=== PATIENT | male | born 1970 | race Caucasian/White ===

== ENCOUNTER 2020-07-28 20:25 | Emergency (ER) | payer OTHER, SELFPAY ==
[2020-07-28 20:26] VITALS: BP 151/90; PULSE 90; RESP 18; TEMP 36.4; O2SAT 97; BMI 36.5
--- NOTE | 2020-07-28 22:07 | RAD_ITS ---
STUDY: X-RAY - LEFT HAND, ATTENTION 4th FINGER REASON FOR EXAM: Male, 49 years old. LACERATION TO PALM SURFACE OF DISTAL RING FINGER TECHNIQUE: 3 view(s) of the finger were obtained. COMPARISON: None. FINDINGS: Normal metacarpal head. Normal metacarpophalangeal joint. Normal proximal phalanx. Normal middle phalanx. Normal distal phalanx. Normal proximal interphalangeal joint. Normal distal interphalangeal joint. Soft tissue swelling of the tip of the finger. Laceration seen of the volar soft tissues. No fractures. No foreign bodies. RAD/Finger(s) Min 2 Views IMPRESSION: Laceration of the volar soft tissues of the tip of the fourth digit. Normal bones and joints. No foreign bodies. Electronically Signed: Anthony Hansen MD at 22:49 EST , Service support ,
[2020-07-28] MEDS: Lidocaine 1% (20 ml mdv) 20 ML Vial INFILT (23:48)
--- NOTE | 2020-07-28 23:49 | ED.VIS.UPPEX ---
History of Present Illness Chief Complaint: Laceration Informant: Patient Occurred: Today Mechanism/Context: Injury Context: Sudden Onset Timing: Continuous Quality of Pain: - - sore Location: left ring finger Current Severity: Mild Maximum Severity: Mild Worsened by: palpation Relieved by: partial digital block at urgent care Associated Symptoms: Parasthesia - since received digital block Narrative: Patient states he was detaching some farm equipment from his tractor, and it suddenly slipped without warning, causing a laceration to his left ring finger. This happened in the morning, and he went the majority of the day until getting it evaluated. He went to urgent care, they said he needed an x-ray that they could not perform, but they performed a partial digital block prior to sending him over here. [id number]. Tetanus Immunization: <5 years - today at urgent care Past Medical History - Allergies and Home Meds Allergies/Adverse Reactions: Allergies No Known Allergies Allergy (Verified 07/28/20 20:28) Primary Care Physician: Ben Cruz DO [Primary Care Provider] - Past Medical History: None Lives: Spouse/ Significant Other Smoking Status: Never smoker Review of Systems General: Denies: Chills, Fever, Sweats Musculoskeletal: Reports: Extremity Pain. Denies: Swelling Skin: Reports: Wounds. Denies: Rash Neurological: Reports: Parasthesia - only since digital block from urgent care Physical Exam Vital Signs/Narrative: Vital Signs Temp Pulse Resp BP Pulse Ox 07/28/20 20:26 97.6 F L 90 18 151/90 H 97 General: Well nourished, Well developed, - - NAD Head: Normocephalic, Atraumatic Extremeties: Laceration to the pad of the left ring finger in a U-shaped. The apex of the U is approximately at the crease of the DIPJ volar aspect. There is quite a bit of subcutaneous tissue involved and the wound itself is swollen throughout. The DIP J flexes without difficulty. The tendon is not visible even in bloodless field. No subungual hematoma or bony tenderness. Skin: Normal color, No rash, Trauma - 4 cm U-shaped clean appearing laceration left ring finger volar aspect of the pad. There are 2 small puncture wounds with clotted blood at the volar aspect of the proximal phalanx of the same finger, none dorsally. Patient does not have tenderness in flexor tendon sheath distribution. Neurological: Alert, Oriented x3, Cranial nerves II-XII grossly intact, Normal Strength, Normal Gait Psychological: Normal affect, Normal Mood Diagnostic/Tx/Re-eval Clinical Impression(s) from Imaging Studies Finger X-Ray 07/28/20 22:07 IMPRESSION: Laceration of the volar soft tissues of the tip of the fourth digit. Normal bones and joints. No foreign bodies. Electronically Signed: Anthony Hansen MD at 22:49 EST , Service support , - Medical Decision Making Patient presents during very busy emergency department, it took him a while to get back to a room from the waiting room. His digital block had almost completely worn off, and was only partial anyway. I had to repeat it, we did so from a dorsal aspect and he had complete anesthesia of the finger, x-rays were negative, wound was repaired, and since he had a delayed presentation I placed him on prophylactic antibiotics. Suture removal in 10 to 14 days. Procedures - Lacerations L ring finger Length: 4 cm Depth: Sub Q Shape: U-shaped Prep: Sterile Conditions, Chlorhexadine Laceration repair: Digital block - dorsal approach to all 4 nerves, good anesthesia obtained., Irrigated, Lidocaine - 7cc total Irrigated (ml): 60 Number of Sutures/Yisel: 8 Suture Information: Ethilon, Simple, 4-0 ED Disposition - Plan for ED Patient: Disposition: Home or Assisted Living Diagnosis: Laceration of left ring finger Instructions: ED Laceration Hand Prescriptions: Cephalexin [Keflex] 500 mg PO TID 5 Days #15 cap Prescription Printed Referrals: Ben Cruz DO [Primary Care Provider] - 10-14 Days suture removal
[2020-07-29 00:01] VITALS: PULSE 76; RESP 16; O2SAT 98
== END 2020-07-29 00:03 | disposition home or self-care (01) ==
PROVIDERS: Emergency Provider Emergency Medicine; PCP Student in an Organized Health Care Education/Training Program
DX: S61.215A Laceration without foreign body of left ring finger without damage to nail, initial encounter (principal); W31.89XA Contact with other specified machinery, initial encounter; Y93.89 Activity, other specified; Y92.9 Unspecified place or not applicable; Y99.9 Unspecified external cause status
CPT/HCPCS: 12002; 73140; 99283

== ENCOUNTER 2021-05-23 19:38 | Emergency (ER) | payer OTHER, SELFPAY ==
[2021-05-23 19:39] VITALS: BP 146/71; PULSE 85; RESP 18; TEMP 37.1; O2SAT 94; BMI 35.7
--- NOTE | 2021-05-23 21:13 | EX.ED.VIS.UR ---
HPI HPI - URI History of Present Illness Chief Complaint: Headache Detail of Chief Complaint: URI symptoms. Informant: patient and spouse/S.O. Onset/Context/Timing Onset: Days Context: Gradual Onset Timing: Continuous Current Severity: Mild Maximum Severity: Mild Associated Symptoms Associated Symptoms: Positive for Nasal Congestion, Headache, Myalgias, Nausea and Nonproductive cough; Negative for Vomiting, Diarrhea and Hemoptysis Narrative Narrative: 50-year-old male history of hypertension and prior kidney stones. States he has really felt well for a week. He is a nonproductive cough. [place] fatigued. Headache. Nausea no vomiting. No diarrhea. No documented fever. No dysuria. He has not been vaccinated for Covid. Prior similar symptoms: No Recent Illness/Hospitalization: No ROS ROS ED ROS Narrative Nonproductive cough. Headache. Nausea. Review of Systems ROS Unobtainable: Denies due to encephalopathy Constitutional Constitutional ED: Denies chills or fever(s) Eyes Eyes: Denies change in vision ENT ENT ED: Denies ear pain or sore throat Cardiovascular Cardiovascular: Denies chest pain Respiratory/Chest Respiratory/Chest: Reports cough; Denies dyspnea or sputum Gastrointestinal Gastrointestinal: Reports nausea; Denies abdominal pain, diarrhea or vomiting Genitourinary Genitourinary ED: Denies dysuria Musculoskeletal Musculoskeletal: Reports myalgias Integumentary Denies abscess or rash Neurologic Neurologic: Reports headache(s) Psychiatric Psychiatric: Denies depression Endocrine Endocrinology: Denies polyuria Hematologic/Lymphatic Hematologic/Lymphatic: Denies easy bruising Allergic/Immunologic Allergic/Immunologic ED: Denies urticaria [facility] Medical History Hypertension Home Medications dexamethasone [Decadron] 6 mg PO DAILY 7 Days #7 tab 05/23/21 [Rx Last Taken Unknown] losartan 25 mg PO DAILY 05/23/21 [History Last Taken Unknown] Allergy/AdvReac Type Severity Reaction Status Date / Time No Known Allergies Allergy Verified 05/23/21 19:39 Social History Smoking Status: Never smoker EXAM Physical Exam Narrative Exam Narrative: Middle-age male no acute distress vital signs stable afebrile. O2 sat 94% no hypoxia. HEENT exam unremarkable. Neck nontender no meningismus. No lymphadenopathy. Lungs dry cough. Few scattered expiratory wheezes. No rales or rhonchi. Equal symmetrical. Heart regular rate and rhythm rate about 85 no murmur. Chest were nontender. Abdomen soft nontender. Moving all 4 extremities. Nontender no edema. Equal symmetrical chemistry technologist strength. Dorsi plantarflexion intact. Neurologic exam normal. No focal motor deficits. Back nontender. Const Vital Signs: 05/23/21 19:39 Temperature 98.7 F Temperature Source Temporal Pulse Rate 85 Respiratory Rate 18 Blood Pressure 146/71 H Blood Pressure Mean 96 Pulse Ox 94 Oxygen Delivery Method Room Air Positive well nourished and well developed; Negative for obese, cachectic or contractures General Appearance ED: well developed and NAD; Negative for cachectic, contractures, cyanotic, diaphoretic or pallor Nutritional Appearance: Negative for cachectic or obese HEENT Reports moist mucous membranes; Denies dry mucous membranes normocephalic and atraumatic; Negative for scalp tenderness Face and Sinus: Negative for sinus tenderness or facial tenderness Mouth ED: No dry mucous membranes Mouth: No dry mucous membranes Throat: Negative for posterior oropharynx normal Eyes PERRL and EOMs intact bilaterally Neck no lymphadenopathy, supple, no meningeal signs and no JVD General: Negative for anterior neck swelling or lymphadenopathy Resp normal respiratory effort and No clear to auscultation bilaterally Effort and Inspection: Negative for retractions or pain with movement Auscultation: wheezes; Negative for rales, rhonchi or diminished lung sounds Cardio S1 normal heart sound, S2 normal heart sound and no murmurs Rate: regular rate Rhythm: regular rhythm GI non-tender, non-distended and no masses Inspection: Negative for abdominal distention Auscultation: normoactive bowel sounds Palpation: soft; Negative for tender or guarding Back/Spine no CVA tenderness and normal ROM General Back: Negative for CVA tenderness Cervical Spine: Negative for cervical spine tenderness Thoracic Spine / Upper Back: Negative for thoracic spinal tenderness Extremity normal to inspection and full ROM General Extremety ED: Negative for cyanosis or tenderness General Extremity: Negative for cyanosis Neuro oriented x3 and CN's II-XII intact bilaterally Sensorium / Orientation: alert, oriented to person, oriented to place and oriented to time; Negative for orientation impaired, lethargic or stuporous Motor Exam: strength 5/5 throughout Psych mental status grossly normal Mood & Affect: Negative for depressed or tearful Skin General Skin Exam: Negative for jaundice or pallor Lesions: no lesions Rashes: no rashes MDM MDM MDM Narrative Medical decision making narrative: Middle-age male respiratory symptoms. Covid test and chest x-ray being obtained. Will be given p.o. Decadron. Repeat exam no change. Patient be placed on Covid quarantine. And Decadron for the next week. Lab Data Attestation: I reviewed the patient's lab results. Lab results narrative: Covid test positive. Chest x-ray unremarkable. Radiography Diagnostic Testing: Portable chest x-ray single view interpreted by myself shows no acute abnormality. Normal cardiac silhouette. No infiltrates. Normal lung mcneill. Normal mediastinum Discharge Plan Triage Chief Complaint: Headache ED Provider: Domenico Valdez Dx/Rx/DC Orders Clinical Impression: COVID-19 Instructions: Human Coronaviruses Prescriptions: New dexamethasone [Decadron] 6 mg tablet 6 mg PO DAILY 7 Days Qty: 7 RF: 0 No Action losartan 25 mg tablet 25 mg PO DAILY RF: 0 Primary Care Provider: Ben Cruz Referrals: Ben Cruz, [Primary Care Provider] - 10-14 Days if not better Disposition Disposition: Home, Self Care
--- NOTE | 2021-05-23 21:25 | RAD_ITS ---
STUDY: X-RAY CHEST REASON FOR EXAM: Male, 50 years old. cough TECHNIQUE: AP portable COMPARISON: 09/07/2012. FINDINGS: The lungs are clear and expanded. Tiny calcified granuloma in right lower lobe. There is no demonstrated pleural abnormality. Normal size heart. Normal mediastinum and rip. Normal visualized pulmonary arteries. Normal visualized aortic arch and descending thoracic aorta. Normal visualized thoracic spine. Normal visualized ribs, clavicles, and shoulders. There is no demonstrated abnormality of the visualized soft tissue structures of the upper abdomen. No significant change since prior exam RAD/Chest 1 View (Portable) IMPRESSION: Old granulomatous disease in the right lower lobe. No acute cardiopulmonary pathology. Electronically Signed: Duran Driscoll MD at 22:26 EDT , Service support ,
[2021-05-23] MEDS: dexAMETHasone 4 MG Tablet 6 MG PO (21:39)
== END 2021-05-23 22:16 | disposition home or self-care (01) ==
PROVIDERS: Emergency Provider Emergency Medicine; PCP Student in an Organized Health Care Education/Training Program
DX: U07.1 COVID-19 (principal); I10 Essential (primary) hypertension; Z79.899 Other long term (current) drug therapy
CPT/HCPCS: 71045; 87426; 99283

== ENCOUNTER 2021-11-03 12:11 | Emergency (ER) | payer OTHER, SELFPAY ==
[2021-11-03 12:12] VITALS: BP 140/88; PULSE 65; RESP 16; TEMP 36.1; O2SAT 95; BMI 34.8
--- NOTE | 2021-11-03 12:41 | EDS_ITS ---
HPI History of Present Illness Chief Complaint: Head Injury Informant: patient Onset/Context/Timing Onset: Today and Hours Current Severity: Mild Maximum Severity: Mild Associated Symptoms Associated Symptoms: Positive for Loss of consciousness; Negative for Parasthesias, Weakness, Loss of function, Inability to ambulate and Amnesia Narrative Narrative: 51-year-old male past medical history diabetes hypertension. 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 He did have a loss of conscious. He denies any arm or leg pain. He said only neck pain he has is laterally on the left. He denies any numbness or weakness. States he has a mild headache. And he does not feel 100%. Has had no nausea or vomiting. He is on no blood thinners. He denies other injuries. Prior similar symptoms: No Recent Illness/Hospitalization: No PFSH PFSH Medical History Hypertension Home Medications dexamethasone [Decadron] 6 mg PO DAILY 7 Days #7 tab 05/23/21 [Rx Last Taken Unknown] losartan 25 mg PO DAILY 05/23/21 [History Last Taken Unknown] metformin 500 mg PO DAILY 11/03/21 [History Last Taken Unknown] Allergy/AdvReac Type Severity Reaction Status Date / Time No Known Allergies Allergy Verified 11/03/21 12:13 Social History Smoking Status: Never smoker ROS ROS ED ROS Narrative Denies. Review of Systems ROS Unobtainable: Denies due to encephalopathy Constitutional Constitutional ED: Denies fever(s) Eyes Eyes: Denies change in vision ENT ENT ED: Denies ear pain Cardiovascular Cardiovascular: Denies chest pain Respiratory/Chest Respiratory/Chest: Denies dyspnea Gastrointestinal Gastrointestinal: Denies abdominal pain, diarrhea, nausea or vomiting Genitourinary Genitourinary ED: Denies dysuria Musculoskeletal Musculoskeletal: Denies myalgias Integumentary Denies rash Neurologic Neurologic: Reports headache(s) Psychiatric Psychiatric: Denies depression Endocrine Endocrinology: Denies polyuria Hematologic/Lymphatic Hematologic/Lymphatic: Denies easy bruising Allergic/Immunologic Allergic/Immunologic ED: Denies urticaria EXAM Physical Exam Narrative Exam Narrative: 51-year-old male no acute distress vital signs stable afebrile. H EENT exam pupils round reactive light. No facial trauma. Small contusion left posterior scalp. No laceration. C-spine nontender. Trachea midline. Normal range of motion. Left lateral paracervical soft tissue tenderness. Lungs are clear. Heart regular rate and rhythm. Chest wall nontender. Abdomen soft nontender. Pelvic girdle intact. Moving all 4 extremities. Normal unarmed security officer strength. Normal dorsi plantar flexion. Back and spine are nontender. Neurologically he did have a brief loss of conscious. Is awake alert. He knows the month, year and president night states. He has normal motor strength and sensation to his upper extremities. His GCS is 15. Const Vital Signs: 11/03/21 12:12 11/03/21 13:00 Temperature 96.9 F L Temperature Source Temporal Pulse Rate 65 Respiratory Rate 16 Respiratory Effort Normal Respiratory Depth Normal Respiratory Pattern Normal Blood Pressure 140/88 H Blood Pressure Mean 105 Pulse Ox 95 Oxygen Delivery Method Room Air Positive well nourished and well developed; Negative for obese, cachectic, contractures or unkempt General Appearance ED: well developed and NAD; Negative for unkempt, cachectic or contractures Nutritional Appearance: Negative for cachectic or obese HEENT trauma and tenderness; Negative for atraumatic Eyes PERRL and EOMs intact bilaterally Neck full ROM Neck Narrative: Left lateral soft tissue tenderness. No spine tenderness. Normal range of motion. General: tenderness Chest Wall inspection of chest normal and palpation of chest normal Resp normal respiratory effort and clear to auscultation bilaterally Auscultation: Negative for rales, rhonchi or wheezes Cardio regular rhythm, S1 normal heart sound, S2 normal heart sound and no murmurs Rate: regular rate GI normal to inspection, nondistended, normoactive bowel sounds, non-tender, non- distended and no masses Auscultation: normoactive bowel sounds Palpation: soft; Negative for tender, guarding or rebound tenderness present Back/Spine normal to inspection and no thoracic nor lumbar tenderness General Back: Negative for CVA tenderness Thoracic Spine / Upper Back: Negative for thoracic spinal tenderness Lumbar Spine / Lower Back: Negative for straight leg raise negative bilaterally Extremity normal to inspection and full ROM General Extremety ED: Negative for deformity, edema or tenderness General Extremity: Negative for deformity or edema Neuro oriented x3 and moves all extremities Cira Coma Scale: document GCS findings Spontaneous Obeys Commands Oriented 15 Sensorium / Orientation: alert, oriented to person, oriented to place and oriented to time; Negative for lethargic or stuporous Motor Exam: strength 5/5 throughout Psych mental status grossly normal and thought process normal Appearance: Negative for unkempt Skin no rashes or lesions noted, no wounds and no jaundice MDM MDM MDM Narrative Medical decision making narrative: Patient with fall and head trauma with loss of consciousness. Exam benign. CT of his brain to be obtained. I suspect clinically he has a concussion. He did not want anything for pain. Repeat exam patient is doing well at 2:30 PM. Neurologic exam remains normal. We went over his CAT scan results. Discharge instructions. Radiography Diagnostic Testing: Clinical Impression(s) from Imaging Studies Brain CT 11/03/21 12:41 IMPRESSION: There are no acute intracranial findings. There is no underlying fracture. Soft tissue swelling of the scalp- posteriorly to the left. Electronically Signed: Michael Cardona MD at 13:23 EST Reading Location ID and State: [facility] / [place] , Service support , CAT scan is read by the radiologist shows no acute abnormality other than soft tissue swelling from where it is head. No intracranial bleed. I did review the film. Discharge Plan Triage Chief Complaint: Head Injury ED Provider: Domenico Valdez Dx/Rx/DC Orders Clinical Impression: Fall, Closed head injury Instructions: ED Concussion Prescriptions: No Action losartan 25 mg tablet 25 mg PO DAILY RF: 0 dexamethasone [Decadron] 6 mg tablet 6 mg PO DAILY 7 Days Qty: 7 RF: 0 metformin 500 mg tablet extended release 24 hr 500 mg PO DAILY RF: 0 Primary Care Provider: Ben Cruz Referrals: Ben Cruz, [Primary Care Provider] - 1 Week if not improving Activity Restrictions/Additional Instructions: Ice all sore areas. Motrin and Tylenol for pain. Follow-up with your primary care physician if not progressively improving. Disposition Disposition: Home, Self Care
--- NOTE | 2021-11-03 12:41 | CT_ITS ---
STUDY: CT BRAIN WITHOUT CONTRAST REASON FOR EXAM: Male, 51 years old. FELL, HIT HEAD, ? LOC, BUMP ON LT PARIETAL head trauma REIS TECHNIQUE: Transaxial CT imaging of the brain was performed without administration of intravenous contrast material. Individualized dose optimization techniques were used for this CT. COMPARISON: None FINDINGS: Normal calvarium. There is no underlying fracture. Soft tissue swelling of the scalp- posteriorly to the left. Normal size ventricles and extra-axial spaces for the patient''s age. Normal white matter tracts of the cerebral hemispheres. Normal basal ganglia and thalami. Normal brainstem. Normal cerebellum. There is no intracranial hemorrhage. There are no findings of an acute ischemic infarction. There is sinus disease. ASPECTS 10 CT/Brain/Head without Contrast IMPRESSION: There are no acute intracranial findings. There is no underlying fracture. Soft tissue swelling of the scalp- posteriorly to the left. Electronically Signed: Michael Cardona MD at 13:23 EST ,
[2021-11-03 14:36] VITALS: PULSE 60; RESP 12
== END 2021-11-03 14:36 | disposition home or self-care (01) ==
PROVIDERS: Emergency Provider Emergency Medicine; PCP Student in an Organized Health Care Education/Training Program; Visit Provider Emergency Medicine
DX: S06.0X9A Concussion with loss of consciousness of unspecified duration, initial encounter (principal); E11.9 Type 2 diabetes mellitus without complications; W01.198A Fall on same level from slipping, tripping and stumbling with subsequent striking against other object, initial encounter; Y92.79 Other farm location as the place of occurrence of the external cause; I10 Essential (primary) hypertension; Z79.84 Long term (current) use of oral hypoglycemic drugs; Z79.899 Other long term (current) drug therapy
CPT/HCPCS: 70450; 99282

== ENCOUNTER 2024-10-12 18:13 | Inpatient (IN) | payer OTHER, SELFPAY ==
[2024-10-12] VITALS (8 sets, daily range): BP systolic 103–157; BP diastolic 67–89; PULSE 76–90; RESP 15–20; TEMP 37.7–38.3; O2SAT 88–95; BMI 34.2; BMI 32.8
--- NOTE | 2024-10-12 18:45 | EKG12_ITS ---
Test Reason : DYSRHYTHMIA Blood Pressure : */* mmHG Vent. Rate : 78 BPM Atrial Rate : 78 BPM P-R Int : 174 ms QRS Dur : 80 ms QT Int : 342 ms P-R-T Axes : 43 31 39 degrees QTcB Int : 389 ms Normal sinus rhythm Normal ECG Confirmed by RHONDA AGOSTO, LEVAR ([id number]), movie editor JONATHAN MCCLOUD ([id number]) on 10/14/2024 7:09:37 AM Referred By: Confirmed By: LEVAR ELLIS MD
--- NOTE | 2024-10-12 18:45 | RAD_ITS ---
PROCEDURE: CHEST PA AND LATERAL REASON FOR EXAM: Headache chills and shortness of breath. TECHNIQUE: Frontal and lateral views of the chest. COMPARISON: None. FINDINGS: The heart size is normal. The mediastinal contour is unremarkable. Mild left basilar atelectasis versus infiltrate. The bones are unremarkable. RAD/Chest PA and Lateral IMPRESSION: Mild left basilar atelectasis versus infiltrate. Reading Location: [id number]
[2024-10-12] MEDS: Albuterol 2.5 MG/3 ML VIAL.NEB. INHALATION ×3 (19:27→20:03)
[2024-10-12 19:32] LABS: Bedside Glucose 109 mg/dL (74-106)
[2024-10-12 19:49] LABS: ALB/GLOB Ratio 1.1 RATIO (0.9-2.4); AST(SGOT) 30 U/L (15-37); Alanine Aminotransfer ALT/SGPT 39 U/L (16-61); Albumin, Serum 3.6 g/dL (3.2-5.0); Alkaline Phosphatase 100 U/L (45-117); Anion Gap 9 (5-15); BUN 12 mg/dL (7-18); BUN/Creat Ratio 11.2 RATIO (10-20); Calcium,Total 8.6 mg/dL (8.5-10.1); Chloride 105 mmol/L (98-107); Creatinine, Serum 1.07 mg/dL (0.70-1.30); EST Glomerular Filtration Rate 76 mL/min (>60); Est Glom Filt Rate - Afr Amer 92 mL/min (>60); Estimated Creatinine Clearance 97.73 ml/min; Globulin 3.2 g/dL (2.2-4.2); Glucose 109 mg/dL (74-106); Potassium 4.5 mmol/L (3.5-5.1); Protein, Total 6.8 g/dL (6.4-8.2); Sodium Level 138 mmol/L (136-145)
[2024-10-12 20:04] LABS: Absolute Lymphocyte Count 1.27 X10^3/uL (0.83-4.51); Absolute Neutrophil Count 3.8 X10^3/uL (2.0-7.7); Basophil# 0.03 X10^3/uL; Basophil% 0.5 % (0-1); Eosinophil# 0.02 X10^3/uL; Eosinophils% 0.3 % (0-5); Hematocrit 47.1 % (40-54); Hemoglobin 16.2 g/dL (13.0-16.5); Lymphocyte # 1.27 X10^3/ul (0.83-4.51); Lymphocyte % 20.6 % (19-41); Mean Corp Hgb Conc 34.4 g/dL (32-36); Mean Corpuscular Hgb 31.4 pg (27.0-32.0); Mean Corpuscular Volume 91.3 fL (80-94); Mean Platelet Vol. 10.4 fl (6.2-12.0); Monocyte# 1.05 X10^3/uL; NRBC Flagged by Analyzer 0 % (0-5); Neutrophil # 3.78 X10^3/uL (2.7-7.7); Neutrophil % 61.3 % (47-70); Platelet Count 143 K/mm3 (150-450); RBC Distribution Width CV 12.9 % (11.6-14.6); RBC Distribution Width SD 43.7 fl (35.1-43.9); Red Blood Count 5.16 M/mm3 (4.6-6.2); White Blood Count 6.2 K/mm3 (4.4-11.0)
[2024-10-12 20:05] LABS: Lactic Acid 1.2 mmol/L (0.4-1.9)
[2024-10-12] MEDS: Acetaminophen 325 MG Tablet 650 MG PO (20:16)
--- NOTE | 2024-10-12 20:19 | CPS ---
[1927] x3 Albuterol given to pt. in ER
--- NOTE | 2024-10-12 20:35 | EDS_ITS ---
HPI History of Present Illness Chief Complaint: General Illness Detail of Chief Complaint: Generalized weakness with minimal cough, fever, chills and aches Informant: patient and spouse/S.O. Onset/Context/Timing Onset: Days (2 days ago) Context: Sudden Onset Timing: Continuous and Waxes and wanes Quality: Headache, myalgias, arthralgias, fever, shaking chills mild cough Location: Upper respiratory Current Severity: Mild Maximum Severity: Moderate Worsened by: Nothing specific Relieved by: Nothing Associated Symptoms Associated Symptoms: Flulike symptoms Narrative Narrative: Patient is a 54-year-old male. He has history of hypertension and type 2 diabetes. He has been monitoring his blood sugar. His last A1c was 8.4. Patient complains of headache, congestion, mild sore throat he has nonproductive scant cough. He does complain of aches. He states he does not feel well. He does complain of shortness of breath and dyspnea on exertion. He is a non- smoker. He has been in contact with people who are ill. Prior similar symptoms: No Recent Illness/Hospitalization: No [facility] Medical History Hypertension Home Medications ?Medication ?Instructions ?Recorded ?Last Taken ?Type dexamethasone 6 mg tablet 6 mg PO DAILY 7 days #7 tabs 05/23/21 Unknown Rx (Decadron) losartan 25 mg tablet 25 mg PO DAILY 05/23/21 Unkn own History metformin 500 mg tablet,extended 500 mg PO DAILY 11/03 Unknown History release 24 hr Allergy/AdvReac Type Severity Reaction Status Date / Time No Known Allergies Allergy Verified 10/12/24 18:14 Social History (Updated 10/12/24 @ 20:[address] Enmanuel Crawford MD) household members: spouse Smoking Status: Never smoker ROS ROS ED Constitutional Constitutional ED: Reports chills, fever(s) and sweats Eyes Eyes: Denies blurry vision or change in vision ENT ENT ED: Reports rhinorrhea and sore throat; Denies ear pain Cardiovascular Cardiovascular: Denies chest pain, orthopnea, palpitations or paroxysmal nocturnal dyspnea Respiratory/Chest Respiratory/Chest: Reports cough, dyspnea and dyspnea on exertion; Denies orthopnea, paroxysmal nocturnal dyspnea or sputum Gastrointestinal Gastrointestinal: Reports nausea; Denies abdominal pain, diarrhea or vomiting Genitourinary Genitourinary ED: Reports other Details: Patient does endorse decreased urine output, thirst. ; Denies dysuria, hematuria or urinary frequency Musculoskeletal Musculoskeletal: Reports arthralgias and myalgias; Denies neck pain Integumentary Denies rash Neurologic Neurologic: Reports headache(s) and weakness Psychiatric Psychiatric: Denies anxiety or depression Hematologic/Lymphatic Hematologic/Lymphatic: Reports systems reviewed and no addt'l complaints, except as documented EXAM Physical Exam Const Vital Signs: 10/12/24 18:14 10/12/24 19:26 10/12/24 19:26 Temperature 100.3 F H 100.9 F H Temperature Source Oral Oral Pulse Rate 78 76 Respiratory Rate 18 15 Respiratory Effort Short of Breath Respiratory Pattern Normal Blood Pressure 110/89 H 118/78 Blood Pressure Mean 96 91 Pulse Ox 94 91 Oxygen Delivery Method Room Air Room Air Oxygen Flow Rate (L/min) 10/12/24 19:27 10/12/24 20:00 10/12/24 20:13 Temperature 100.9 F H Temperature Source Oral Pulse Rate 88 87 Respiratory Rate 18 18 Respiratory Effort Respiratory Pattern Normal Blood Pressure 110/67 Blood Pressure Mean 81 Pulse Ox 88 93 Oxygen Delivery Method Room Air Nasal Cannula Oxygen Flow Rate (L/min) 2 Positive well nourished and well developed Constitutional Narrative: BMI is 34.2. General Appearance ED: well developed; Negative for cyanotic, diaphoretic or NAD HEENT Reports moist mucous membranes HEENT Narrative: Head is atraumatic normocephalic. Ears normal. Eyes PERRL and EOMs intact bilaterally General Eye ED: Negative for pale conjunctiva or scleral icterus Neck no lymphadenopathy, supple and no JVD Neck Narrative: Trachea is midline. There is no stridor. Resp normal respiratory effort and No clear to auscultation bilaterally Auscultation: rhonchi throughout and wheezes expiratory wheezes (Greater lower lobes compared to upper.) Cardio regular rate, regular rhythm, S1 normal heart sound, S2 normal heart sound and no murmurs GI normal to inspection, nondistended, normoactive bowel sounds, non-tender, non- distended and no masses; Negative for hepatosplenomegaly Back/Spine no CVA tenderness Extremity normal to inspection General Extremety ED: Negative for edema or tenderness General Extremity: Negative for edema Neuro oriented x3 and CN's II-XII intact bilaterally Sensorium / Orientation: alert Psych mental status grossly normal Skin Skin Narrative: Patient appears flushed and ill. MDM MDM MDM Narrative Medical decision making narrative: Patient with flulike symptoms. Sepsis workup was undertaken.Patient was ordered Tylenol for his fever. Since he is influenza A positive and hypoxic Tamiflu was ordered. Will obtain chest x-ray to assess for pneumonia. Rapid antigen for COVID flu and RSV, comprehensive metabolic panel CBC and lactate to assess for endorgan dysfunction. EKG since he is diabetic and tachycardic to rule out ischemia since he has an infectious etiology for his symptoms. He did receive aerosol treatments for rhonchi and wheezing noted on auscultation. History & Record Review Additional record(s) reviewed:: Prior ED visit (Seen November 03, 2021 for closed head injury, May 2021 for COVID, July 2020 for left ring finger laceration) and Prior labs Lab Data Attestation: I reviewed the patient's lab results. Lab results narrative: Comprehensive metabolic panel is remarkable slight elevated glucose of 109 with normal CO2 anion gap. White count is unremarkable. Labs: Laboratory Results - last 24 hr 10/12/24 10/12/24 10/12/24 19:05 19:05 19:12 WBC Cancelled Corrected WBC Cancelled RBC Cancelled Hgb Cancelled Hct Cancelled MCV Cancelled MCH Cancelled MCHC Cancelled RDW Std Deviation Cancelled RDW Coeff of Heidi Cancelled Plt Count Cancelled MPV Cancelled Immature Gran % (Auto) Cancelled Neut % (Auto) Cancelled Lymph % (Auto) Cancelled [place] % (Auto) Cancelled Eos % (Auto) Cancelled Baso % (Auto) Cancelled Absolute Neuts (auto) Cancelled Absolute Lymphs (auto) Cancelled Total Counted Cancelled Neutrophils % (Manual) Cancelled Band Neutrophils % Cancelled Lymphocytes % (Manual) Cancelled Monocytes % (Manual) Cancelled Eosinophils % (Manual) Cancelled Basophils % (Manual) Cancelled Metamyelocytes % Cancelled Myelocytes % Cancelled Promyelocytes % Cancelled Blast Cells % Cancelled Plasma Cell % (Manual) Cancelled Other Cells % Cancelled Nucleated RBC % Cancelled Nucleated RBCs/100 WBC Cancelled Differential Comment Cancelled Diff Path Review Cancelled Hypersegmented Neuts Cancelled Atypical Lymphocytes Cancelled Reactive Lymphocytes Cancelled Smudge Cells Cancelled Toxic Granulation Cancelled Toxic Vacuolation Cancelled Dohle Bodies Cancelled Eduar Rods Cancelled Platelet Estimate Cancelled Plt Morphology Comment Cancelled RBC Morphology Cancelled Cancelled Polychromasia Cancelled Hypochromasia Cancelled Basophilic Stippling Cancelled Anisocytosis Cancelled Microcytosis Cancelled Macrocytosis Cancelled Spherocytes Cancelled Sickle Cells Cancelled Target Cells Cancelled Tear Drop Cells Cancelled Ovalocytes Cancelled Stomatocytes Cancelled [place] Bodies Cancelled [place] Cells Cancelled Bite Cells Cancelled Crenated Cell Cancelled Acanthocytes (Spur) Cancelled Rouleaux Cancelled Schistocytes Cancelled Sodium 138 Potassium 4.5 Chloride 105 Carbon Dioxide 25.0 Anion Gap 9 BUN 12 Creatinine 1.07 Estim Creat Clear Calc 97.73 Est GFR (MDRD) Af Amer 92 Est GFR (MDRD) Non-Af 76 BUN/Creatinine Ratio 11.2 Glucose 109 H Lactic Acid 1.2 Calcium 8.6 Total Bilirubin 0.50 AST 30 ALT 39 Alkaline Phosphatase 100 Total Protein 6.8 Albumin 3.6 Globulin 3.2 Albumin/Globulin Ratio 1.1 POC Glucose 109 H 10/12/24 19:50 WBC 6.2 Corrected WBC RBC 5.16 Hgb 16.2 Hct 47.1 MCV 91.3 MCH 31.4 MCHC 34.4 RDW Std Deviation 43.7 RDW Coeff of Heidi 12.9 Plt Count 143 L MPV 10.4 Immature Gran % (Auto) 0.300 Neut % (Auto) 61.3 Lymph % (Auto) 20.6 [place] % (Auto) 17.0 H Eos % (Auto) 0.3 Baso % (Auto) 0.5 Absolute Neuts (auto) 3.8 Absolute Lymphs (auto) 1.27 Total Counted Neutrophils % (Manual) Band Neutrophils % Lymphocytes % (Manual) Monocytes % (Manual) Eosinophils % (Manual) Basophils % (Manual) Metamyelocytes % Myelocytes % Promyelocytes % Blast Cells % Plasma Cell % (Manual) Other Cells % Nucleated RBC % 0 Nucleated RBCs/100 WBC Differential Comment Diff Path Review Hypersegmented Neuts Atypical Lymphocytes Reactive Lymphocytes Smudge Cells Toxic Granulation Toxic Vacuolation Dohle Bodies Eduar Rods Platelet Estimate Plt Morphology Comment RBC Morphology Polychromasia Hypochromasia Basophilic Stippling Anisocytosis Microcytosis Macrocytosis Spherocytes Sickle Cells Target Cells Tear Drop Cells Ovalocytes Stomatocytes [place] Bodies Suresh Cells Bite Cells Crenated Cell Acanthocytes (Spur) Rouleaux Schistocytes Sodium Potassium Chloride Carbon Dioxide Anion Gap BUN Creatinine Estim Creat Clear Calc Est GFR (MDRD) Af Amer Est GFR (MDRD) Non-Af BUN/Creatinine Ratio Glucose Lactic Acid Calcium Total Bilirubin AST ALT Alkaline Phosphatase Total Protein Albumin Globulin Albumin/Globulin Ratio POC Glucose Radiography Chest X-Ray - ED: 2 View, Read by ED Physician (Independent reviewed interpreted by me at 2037.), Normal, Heart, Lungs, Mediastinum, Bony Structures and No Acute Disease Diagnostic Testing: Clinical Impression(s) from Imaging Studies Chest X-Ray 10/12/24 18:45 IMPRESSION: Mild left basilar atelectasis versus infiltrate. Reading Location: [facility] Management Discussion w/another healthcare provider: Hospitalist (Case was discussed with Dr. Lisa West. Full admit MedSurg) Treatment and Re-Evaluation :: Patient was informed of results and need for admission since his pulse ox went to 88% on room air and is presently on 2 L by nasal cannula. Discharge Plan Dx/Rx/DC Orders Clinical Impression: Influenza A, Hypoxia, Fever in adult, History of hypertension, Type 2 diabetes mellitus, Acute bronchospasm Disposition Disposition: Acute Care [facility]
--- NOTE | 2024-10-12 21:00 | PCM.HP.STD ---
HPI - General General Date of Admission: 10/12/24 Date of Service: 10/12/24 Chief Complaint: Fever, chills, cough, dyspnea, congestion, worsening. HPI Narrative The patient is a 54-year-old male with past medical history obesity, diabetes mellitus type 2, hypertension who presents to the [facility] ED on 11/02 with history of 2 days of progressively worsening fatigue, malaise, fever, chills, body aches, nonproductive cough, headache as well as a mild sore throat not improving prompting to bring patient in for evaluation. He notes that his symptoms seem to wax and wane. He does feel more short of breath when he exerts himself. He does report that he has been in contact with other ill individuals. Currently his is well-appearing and she denies any symptoms. Workup in the ED included T1 100.3, heart rate 78, BP 110/89, respiratory rate 18, 94% room air however patient desaturated down to 88%, currently 93% on 2 L nasal cannula, CBC with WC 6.2, hemoglobin 16.2, platelet 143 without marked shift, CMP with glucose 109 otherwise not marked appearing, BUN/creatinine 12/1.09, GFR 76, chest x-ray with mild left basilar atelectasis versus infiltrate. In the ED patient ministered Tamiflu 75 mg p.o. x 1 as well as Tylenol 650 mg p.o. x 1. [facility] Medical History Obesity Type 2 diabetes mellitus Hypertension Home Medications ?Medication ?Instructions ?Recorded ?Last Taken ?Type dexamethasone 6 mg tablet 6 mg PO DAILY 7 days #7 tabs 05/23/21 Unknown Rx (Decadron) losartan 25 mg tablet 25 mg PO DAILY 05/23/21 Unknown History metformin 500 mg tablet,extended 500 mg PO DAILY 11/03/21 Unknown History release 24 hr Allergy/AdvReac Type Severity Reaction Status Date / Time No Known Allergies Allergy Verified 10/12/24 18:14 Family History Mother CVA (cerebral vascular accident) Diabetes Father Diabetes Heart disease Hypertension CAD (coronary artery disease) Surgical History No history of previous surgery Social History household members: spouse Smoking Status: Never smoker alcohol intake: never substance use type: does not use ROS ROS Narrative Admission Review of Systems: CONSTITUTIONAL: No weight loss, + fever, chills, weakness or fatigue. HEENT: + Headache, congestion, rhinorrhea, sore throat. Eyes: No visual loss, blurred vision, double vision or yellow sclerae. Ears, Nose, Throat: No hearing loss. SKIN: No rash or itching, lesions, wounds. CARDIOVASCULAR: No chest pain, chest pressure or chest discomfort, palpitations, edema, orthopnea, syncopal events. RESPIRATORY: + Dyspnea, not markedly productive cough, occasional wheezing. No hemoptysis. GASTROINTESTINAL: + Decreased appetite. No nausea, vomiting or diarrhea, abdominal pain, melena, BRBPR. GENITOURINARY: No dysuria, frequency, urgency or retention. NEUROLOGICAL: + Headache. No dizziness, syncope, paralysis, ataxia, numbness or tingling in the extremities, focal weakness, change in bowel or bladder control, seizure. MUSCULOSKELETAL: + muscle, back pain, joint pain or stiffness. HEMATOLOGIC: No anemia, bleeding or bruising. LYMPHATICS: No enlarged nodes. No history of splenectomy. PSYCHIATRIC: No history of depression or anxiety. ENDOCRINOLOGIC: +reports of sweating, cold or heat intolerance. No polyuria or polydipsia. ALLERGIES: No history of asthma, hives, eczema or rhinitis. Vital Signs Vital Signs Vital Signs: 10/12/24 18:14 10/12/24 19:26 10/12/24 19:26 Temperature 100.3 F H 100.9 F H Temperature Source Oral Oral Pulse Rate 78 76 Respiratory Rate 18 15 Respiratory Effort Short of Breath Respiratory Pattern Normal Blood Pressure 110/89 H 118/78 Blood Pressure Mean 96 91 Pulse Ox 94 91 Oxygen Delivery Method Room Air Room Air Oxygen Flow Rate (L/min) 10/12/24 19:27 10/12/24 20:00 10/12/24 20:13 Temperature 100.9 F H Temperature Source Oral Pulse Rate 88 87 Respiratory Rate 18 18 Respiratory Effort Respiratory Pattern Normal Blood Pressure 110/67 Blood Pressure Mean 81 Pulse Ox 88 93 Oxygen Delivery Method Room Air Nasal Cannula Oxygen Flow Rate (L/min) 2 Weight Weight: 245 lb Body Mass Index (BMI) 34.2 Physical Exam Narrative Physical Examination: General: Awake, alert, oriented x 3 and cooperative, seated upright in ED bed, diaphoretic, fatigued and ill-appearing. Skin: Normal color, normal turgor, no icterus, no cyanosis. HEENT: AT/NC, EOMI, PERRLA, dry MM, no carotid bruits or JVD noted. Lungs: Diminished, greater bases, left greater than right, mildly rhonchorous, occasional end expiratory wheezing, no evidence of any distress, nasal cannula in place. Heart: Currently regular rate and rhythm; no gallop, rub audible. Abdomen: Soft, obese, NTTP, ND, distant normal BS, no appreciated HSM. Extremities: No cyanosis, clubbing, or edema. Neurological: Patient awake, alert, oriented as noted, cognitive function intact; pupils equally reactive to light and accommodation, cranial nerves grossly normal, moving all 4 extremities, no focal deficits, strength moderately globally decreased secondary to acute presentation. Psychiatric: Affect appears flat, fatigued, no acute evidence of depressive or anxiety feelings. Results Lab / Micro Data 10/12/24 19:50 10/12/24 19:05 Labs: Laboratory Results - last 24 hr 10/12/24 19:05: WBC Cancelled, Corrected WBC Cancelled, RBC Cancelled, Hgb Cancelled, Hct Cancelled, MCV Cancelled, MCH Cancelled, MCHC Cancelled, RDW Std Deviation Cancelled, RDW Coeff of Heidi Cancelled, Plt Count Cancelled, MPV Cancelled, Immature Gran % (Auto) Cancelled, Neut % (Auto) Cancelled, Lymph % (Auto) Cancelled, [place] % (Auto) Cancelled, Eos % (Auto) Cancelled, Baso % (Auto) Cancelled, Absolute Neuts (auto) Cancelled, Absolute Lymphs (auto) Cancelled, Total Counted Cancelled, Neutrophils % (Manual) Cancelled, Band Neutrophils % Cancelled, Lymphocytes % (Manual) Cancelled, Monocytes % (Manual) Cancelled, Eosinophils % (Manual) Cancelled, Basophils % (Manual) Cancelled, Metamyelocytes % Cancelled, Myelocytes % Cancelled, Promyelocytes % Cancelled, Blast Cells % Cancelled, Plasma Cell % (Manual) Cancelled, Other Cells % Cancelled, Nucleated RBC % Cancelled, Nucleated RBCs/100 WBC Cancelled, Differential Comment Cancelled, Diff Path Review Cancelled, Hypersegmented Neuts Cancelled, Atypical Lymphocytes Cancelled, Reactive Lymphocytes Cancelled, Smudge Cells Cancelled, Toxic Granulation Cancelled, Toxic Vacuolation Cancelled, Dohle Bodies Cancelled, Eduar Rods Cancelled, Platelet Estimate Cancelled, Plt Morphology Comment Cancelled, RBC Morphology Cancelled 10/12/24 19:05: RBC Morphology Cancelled, Polychromasia Cancelled, Hypochromasia Cancelled, Basophilic Stippling Cancelled, Anisocytosis Cancelled, Microcytosis Cancelled, Macrocytosis Cancelled, Spherocytes Cancelled, Sickle Cells Cancelled, Target Cells Cancelled, Tear Drop Cells Cancelled, Ovalocytes Cancelled, Stomatocytes Cancelled, [place] Bodies Cancelled, [place] Cells Cancelled, Bite Cells Cancelled, Crenated Cell Cancelled, Acanthocytes (Spur) Cancelled, Rouleaux Cancelled, Schistocytes Cancelled, Sodium 138, Potassium 4.5, Chloride 105, Carbon Dioxide 25.0, Anion Gap 9, BUN 12, Creatinine 1.07, Estim Creat Clear Calc 97.73, Est GFR (MDRD) Af Amer 92, Est GFR (MDRD) Non-Af 76, BUN/Creatinine Ratio 11.2, Glucose 109 H, Lactic Acid 1.2, Calcium 8.6, Total Bilirubin 0.50, AST 30, ALT 39, Alkaline Phosphatase 100, Total Protein 6.8, Albumin 3.6, Globulin 3.2, Albumin/Globulin Ratio 1.1 10/12/24 19:12: POC Glucose 109 H 10/12/24 19:50: WBC 6.2, RBC 5.16, Hgb 16.2, Hct 47.1, MCV 91.3, MCH 31.4, MCHC 34.4, RDW Std Deviation 43.7, RDW Coeff of Heidi 12.9, Plt Count 143 L, MPV 10.4, Immature Gran % (Auto) 0.300, Neut % (Auto) 61.3, Lymph % (Auto) 20.6, [place] % (Auto) 17.0 H, Eos % (Auto) 0.3, Baso % (Auto) 0.5, Absolute Neuts (auto) 3.8, Absolute Lymphs (auto) 1.27, Nucleated RBC % 0 Micro: Microbiology 10/12/24 19:05 Mucosa - Nose SARS-CoV-2, Influenza & RSV (PCR) - Final Influenzae A Imaging Radiology Impression Chest X-Ray 10/12/24 18:45 IMPRESSION: Mild left basilar atelectasis versus infiltrate. Reading Location: [facility] Assessment & Plan Assessment/Plan (1) Hypoxia: (2) Influenza A: PLAN: Plan The patient is a 54-year-old male with past medical history obesity, diabetes mellitus type 2, hypertension who presents to the [facility] ED on 11/02 with history of 2 days of progressively worsening fatigue, malaise, fever, chills, body aches, nonproductive cough, headache as well as a mild sore throat not improving prompting to bring patient in for evaluation. #1. Acute hypoxia secondary to influenza A: Will admit to MS given otherwise stable vital signs, maintain on oxygen with wean as tolerated to room air, continue ATC budesonide, PRN albuterol, will maintain on Tamiflu in addition to initiation of IV Solu-Medrol given significant wheezing on evaluation with bronchospasms, encourage HOB, IS parameters w/ pending sputum cultures, procalcitonin and urine antigens. Bld cx x 2 obtained in the ED. Will obtain AM oxygenation trial for discharge planning daily. #2. Acute thrombocytopenia, reactive: Admission platelets 143, likely secondary to acute presentation #1, will continue to trend CBC. #3. Possible Chronic Kidney Disease Stage II per current GFR trending but minimal labs for comparison: Admission BUN/Cr /.07, GFR 76, baseline renal function noted to be 0.8 however this is very remote, repeat BMP in AM to be able to elucidate if this is underlying chronic disease or insufficiency. #4. Hypertension: Continue home regimen including losartan but clarifying regimen, PRN hydralazine. #5. Obesity: Weight loss and lifestyle changes encouraged. #6. DVT prophylaxis: Lovenox. #7. CODE status: Patient does not have healthcare power of deputy county attorney or living will in place but notes his is medical decision-maker if necessary. Discussed CODE status at length including difference between FULL code, DNR-CCA and DNR-CC status. Following discussions about the differences in these status, requested Full Code status. Charges/Coding Visit Charges Inpatient E&M: 15083 Init Hosp L3
[2024-10-12] MEDS: Oseltamivir Phosphate 75 MG Capsule PO (21:03)
[2024-10-12] MEDS: 0.9% Normal Saline (1000mL) 1,000 ML 100 ML IV (23:03)
[2024-10-12 23:23] LABS: Procalcitonin 0.14 ng/mL (0.00-0.09)
[2024-10-12 23:27] LABS: Bedside Glucose 153 mg/dL (74-106)
[2024-10-13 04:00] VITALS: BMI 32.9
[2024-10-13 05:21] LABS: Absolute Lymphocyte Count 0.52 X10^3/uL (0.83-4.51); Absolute Neutrophil Count 3.1 X10^3/uL (2.0-7.7); Basophil# 0.01 X10^3/uL; Basophil% 0.3 % (0-1); Hematocrit 47.1 % (40-54); Hemoglobin 15.5 g/dL (13.0-16.5); Lymphocyte # 0.52 X10^3/ul (0.83-4.51); Lymphocyte % 13.5 % (19-41); Mean Corp Hgb Conc 32.9 g/dL (32-36); Mean Corpuscular Hgb 30.9 pg (27.0-32.0); Mean Platelet Vol. 10.3 fl (6.2-12.0); Monocyte# 0.21 X10^3/uL; Monocyte% 5.4 % (0-10); NRBC Flagged by Analyzer 0 % (0-5); Neutrophil # 3.11 X10^3/uL (2.7-7.7); Neutrophil % 80.5 % (47-70); POSITIVE DIFFERENTIAL YES; Platelet Count 130 K/mm3 (150-450); RBC Distribution Width CV 13.1 % (11.6-14.6); RBC Distribution Width SD 44.9 fl (35.1-43.9); Red Blood Count 5.01 M/mm3 (4.6-6.2); White Blood Count 3.9 K/mm3 (4.4-11.0)
[2024-10-13 05:29] VITALS: BP 119/77; PULSE 64; RESP 20; TEMP 36.9; O2SAT 93
[2024-10-13 05:47] LABS: ALB/GLOB Ratio 1.1 RATIO (0.9-2.4); AST(SGOT) 28 U/L (15-37); Alanine Aminotransfer ALT/SGPT 38 U/L (16-61); Albumin, Serum 3.4 g/dL (3.2-5.0); Alkaline Phosphatase 96 U/L (45-117); Anion Gap 11 (5-15); BUN 15 mg/dL (7-18); BUN/Creat Ratio 15.2 RATIO (10-20); Calcium,Total 8.2 mg/dL (8.5-10.1); Chloride 108 mmol/L (98-107); Creatinine, Serum 0.98 mg/dL (0.70-1.30); EST Glomerular Filtration Rate 84 mL/min (>60); Est Glom Filt Rate - Afr Amer 101 mL/min (>60); Globulin 3.1 g/dL (2.2-4.2); Glucose 159 mg/dL (74-106); Potassium 4.2 mmol/L (3.5-5.1); Protein, Total 6.5 g/dL (6.4-8.2); Sodium Level 138 mmol/L (136-145)
[2024-10-13 06:00] LABS: Bedside Glucose 169 mg/dL (74-106)
[2024-10-13 08:36] VITALS: BP 123/81; PULSE 65; RESP 18; TEMP 36.9; O2SAT 96
[2024-10-13] MEDS: Losartan Potassium 25 MG Tablet PO (09:35)
[2024-10-13] MEDS: Oseltamivir Phosphate 75 MG Capsule PO (09:35)
[2024-10-13 10:52] VITALS: O2SAT 95
--- NOTE | 2024-10-13 11:20 | CASEMGMT ---
Noted pt did not qualify for home oxygen.
--- NOTE | 2024-10-13 11:35 | CASEMGMT ---
RN CM PRODUCT EVANGELIST CM?to room to meet with patient for initial transition planning/care coordination assessment. RN CM?introduced self and role at [facility]. Pt voices understanding and consents to assessment?at this time. Pt sitting up in chair in no distress at this time. Pt is A/O at this time and answers all questions appropriately. Care providers, pharmacy, and demographics verified/updated at this time. Strata:?1 PCP: Dr Cruz Specialists:none Preferred Pharmacy: [facility] Retail Insurance: [employer] [place] Prescription Benefit: yes Living Will/HPOA: Pt states has a LW and HCPOA, who is his , Halie. He is aware these are not on-file @ [facility]. LNOK: , Halie Living Arrangements: Lives w/ and 17-yr-old son [facility]. Denies difficulty w/stairs. Independent. Transportation:?Pt states drives self and states no transportation concerns at this time. also drives. DME: States has the following DME: BP machine, Toney CGM, and glucometer. Pt states he has all supplies needed. Pt states no need for further DME at this time. HHC/SNF: No hx of either. No needs identified. Pt wishes to return home and states has no concerns with going home at time of discharge. CM?to follow for any discharge planning/needs. Pt voices no further concerns/needs at this time. Advised pt to ask for CM?if any further questions/concerns/needs arise. Voices understanding. PLAN: Home Rohit HAILE RN, CM
[2024-10-13 12:56] LABS: Bedside Glucose 162 mg/dL (74-106)
--- NOTE | 2024-10-13 12:56 | DCINST_ITS ---
Discharge Instructions Diet Discharge Diet: Low fat / Low cholesterol DC O2, CPAP, BIPAP needs RN Home O2 Qualification: Home O2 Qualification: Is the patient on home oxygen No 10/13/24 10:52 Home O2 Qualification: AT REST 1- Pulse Ox at rest 95 10/13/24 10:52 Home O2 Qualification: WITH AMBULATION 1- Pulse Ox with ambulation 95 10/13/24 10:52 1- Oxygen Flow Rate with 0 10/13/24 10:52 ambulation Home O2 Discharge instructions: No Dressing / Incision Discharge Activity: Return to Normal Activity Weight Bearing Status: Weight bearing as tolerated Dressing / Incision Call your doctor if you observe: Fever of 101 or Higher, Shortness of breath, Dizziness, Swelling in the ankles and Chest pain Follow Up Care Test Results: Test results from this visit will be discussed in further detail at your follow- up appointment, if applicable. Discharge Plan Admission Admit Date/Time: 10/12/24 21:00 Primary Reason for Your Visit: hypoxia, influenza Attending Provider: Jenny Lockett Primary Care Provider: Ben Cruz Consulting Providers: Lisa West Instructions Patient Instructions: ED Influenza (Adult) Discharge Orders/Prescriptions Prescriptions: New oseltamivir 75 mg Capsule 75 mg PO BID Qty: 8 0RF prednisone 20 mg tablet 40 mg PO DAILY Qty: 10 0RF Continued losartan 50 mg tablet 50 mg PO DAILY rosuvastatin 10 mg tablet 10 mg PO QHS Jardiance 25 mg tablet 25 mg PO DAILY Mounjaro 2.5 mg/0.5 mL pen injector 2.5 mg subcut QWEEK Referrals / Follow Up: Ben Cruz DO [Primary Care Provider] - Within 1 Week Disposition Disposition (needs filled in before D/C Order can be placed): Home, Self Care
--- NOTE | 2024-10-13 12:57 | PCM.DC.SUM ---
Providers Date of Admission: 10/12/24 Date of Discharge: 10/13/24 Primary Care Physician: Dr. Ben Cruz DO Reason For Visit: HYPOXIA, INFLUENZA A Diagnosis Discharge Diagnosis (1) Hypoxia: Status: Acute Code(s): R09.02 - Hypoxemia (2) Influenza A: Status: Acute Code(s): J10.1 - Influenza due to other identified influenza virus with other respiratory manifestations Medications at Discharge Home Medications empagliflozin 25 mg tablet (Jardiance) 25 mg PO DAILY diabetes 10/12/24 losartan 50 mg tablet 50 mg PO DAILY htn 10/12/24 rosuvastatin 10 mg tablet 10 mg PO DAILY hld 10/12/24 tirzepatide 2.5 mg/0.5 mL subcutaneous pen injector (Mounjaro) 2.5 mg subcut FISCHER@1000 dm 10/12/24 oseltamivir 75 mg capsule 75 mg PO BID #8 caps 10/13/24 prednisone 20 mg tablet 40 mg (2 x 20 mg) PO DAILY #10 tabs 10/13/24 Hospital Course Operations None Procedures None Summary of Care Provided Minutes Spent on Discharge: 39 Hospital Course: Patient is a 54-year-old male with past medical history as outlined was admitted to the ED on 10/12/2024 with complaint of fever and chills, cough as well as shortness of breath. His symptoms have been going on for about 2 days. He had associated sore throat. On admission he was found to be febrile temperature 100.3 ?F. He desaturated down to 88% on room air and required 2 L of oxygen. Chest x-ray showed mild left basilar atelectasis versus infiltrate. Influenza screen was positive. He was admitted and managed for hypoxia due to influenza. He was currently hydrated with IV fluids and placed on oxygen as well as Tamiflu. Patient symptoms rapidly improved and he felt much better. On 10/13/2024 at time of review patient was on room air and said he felt much better than when he came in. He denied any cough or chest pain, palpitations, dizziness, nausea or vomiting. He did have walking pulse ox which showed that he did not require any oxygen. Patient therefore requested to be discharged home. He was discharged home on 10/13/2024 on p.o. Tamiflu to complete a 5-day course. He is to follow-up with his primary care doctor within 1 to 2 weeks. Patient was counseled to come back to the ED if his shortness of breath recurred or worsened. He was also discharged on p.o. prednisone 40 mg daily for 5-day course. Patient seen and examined prior to discharge. He felt well. He was on room air and had no complaints. He denied any cough. Review of systems otherwise negative. Labs and vitals reviewed. Home medication reviewed and reconciled. Physical Exam Const alert, oriented x3 and no apparent distress General Appearance: cooperative, comfortable and well kempt Orientation / Consciousness: awake Exam Limitations: no limitations HEENT normocephalic, head/scalp atraumatic, hearing grossly normal bilaterally and moist oral mucous membranes Mouth: oral and palatal mucosa normal and dry mucous membranes Eyes PERRL, EOMs intact bilaterally and conjunctivae normal Neck no lymphadenopathy and supple Resp Resp Narrative: Mildly diminished breath sounds bibasilarly. No wheezes or crackles. On room air. Cardio regular rate, regular rhythm, S1 normal heart sound, S2 normal heart sound and no murmurs GI normal to inspection, nondistended, normoactive bowel sounds, soft to palpation, non-tender and non-distended Extremity normal to inspection, full ROM and no clubbing, cyanosis or edema Skin no rashes or lesions noted Neuro oriented x3, CN's II-XII intact bilaterally, moves all extremities, no focal motor deficits and no sensory deficits noted Sensorium / Orientation: awake and alert Motor Exam: strength 5/5 throughout Psych affect normal Weight / BMI Weight Weight: 235 lb 3.732 oz Body Mass Index (BMI) 32.9 ABG / Lab / Microbiology Data 10/13/24 04:57 10/13/24 04:57 Laboratory: Laboratory Results - last 24 hr 10/12/24 19:05: WBC Cancelled, Corrected WBC Cancelled, RBC Cancelled, Hgb Cancelled, Hct Cancelled, MCV Cancelled, MCH Cancelled, MCHC Cancelled, RDW Std Deviation Cancelled, RDW Coeff of Heidi Cancelled, Plt Count Cancelled, MPV Cancelled, Immature Gran % (Auto) Cancelled, Neut % (Auto) Cancelled, Lymph % (Auto) Cancelled, Baldwin % (Auto) Cancelled, Eos % (Auto) Cancelled, Baso % (Auto) Cancelled, Absolute Neuts (auto) Cancelled, Absolute Lymphs (auto) Cancelled, Total Counted Cancelled, Neutrophils % (Manual) Cancelled, Band Neutrophils % Cancelled, Lymphocytes % (Manual) Cancelled, Monocytes % (Manual) Cancelled, Eosinophils % (Manual) Cancelled, Basophils % (Manual) Cancelled, Metamyelocytes % Cancelled, Myelocytes % Cancelled, Promyelocytes % Cancelled, Blast Cells % Cancelled, Plasma Cell % (Manual) Cancelled, Other Cells % Cancelled, Nucleated RBC % Cancelled, Nucleated RBCs/100 WBC Cancelled, Differential Comment Cancelled, Diff Path Review Cancelled, Hypersegmented Neuts Cancelled, Atypical Lymphocytes Cancelled, Reactive Lymphocytes Cancelled, Smudge Cells Cancelled, Toxic Granulation Cancelled, Toxic Vacuolation Cancelled, Dohle Bodies Cancelled, Eduar Rods Cancelled, Platelet Estimate Cancelled, Plt Morphology Comment Cancelled, RBC Morphology Cancelled 10/12/24 19:05: RBC Morphology Cancelled, Polychromasia Cancelled, Hypochromasia Cancelled, Basophilic Stippling Cancelled, Anisocytosis Cancelled, Microcytosis Cancelled, Macrocytosis Cancelled, Spherocytes Cancelled, Sickle Cells Cancelled, Target Cells Cancelled, Tear Drop Cells Cancelled, Ovalocytes Cancelled, Stomatocytes Cancelled, Lew-Edith Endave Bodies Cancelled, Cashiers Cells Cancelled, Bite Cells Cancelled, Crenated Cell Cancelled, Acanthocytes (Spur) Cancelled, Rouleaux Cancelled, Schistocytes Cancelled, Sodium 138, Potassium 4.5, Chloride 105, Carbon Dioxide 25.0, Anion Gap 9, BUN 12, Creatinine 1.07, Estim Creat Clear Calc 97.73, Est GFR (MDRD) Af Amer 92, Est GFR (MDRD) Non-Af 76, BUN/Creatinine Ratio 11.2, Glucose 109 H, Lactic Acid 1.2, Calcium 8.6, Total Bilirubin 0.50, AST 30, ALT 39, Alkaline Phosphatase 100, Total Protein 6.8, Albumin 3.6, Globulin 3.2, Albumin/Globulin Ratio 1.1 10/12/24 19:12: POC Glucose 109 H 10/12/24 19:50: WBC 6.2, RBC 5.16, Hgb 16.2, Hct 47.1, MCV 91.3, MCH 31.4, MCHC 34.4, RDW Std Deviation 43.7, RDW Coeff of Heidi 12.9, Plt Count 143 L, MPV 10.4, Immature Gran % (Auto) 0.300, Neut % (Auto) 61.3, Lymph % (Auto) 20.6, Baldwin % (Auto) 17.0 H, Eos % (Auto) 0.3, Baso % (Auto) 0.5, Absolute Neuts (auto) 3.8, Absolute Lymphs (auto) 1.27, Nucleated RBC % 0 10/12/24 22:45: Procalcitonin 0.14 H 10/12/24 22:59: POC Glucose 153 H 10/13/24 04:57: WBC 3.9 L, RBC 5.01, Hgb 15.5, Hct 47.1, MCV 94.0, MCH 30.9, MCHC 32.9, RDW Std Deviation 44.9 H, RDW Coeff of Heidi 13.1, Plt Count 130 L, MPV 10.3, Immature Gran % (Auto) 0.300, Neut % (Auto) 80.5 H, Lymph % (Auto) 13.5 L, Baldwin % (Auto) 5.4, Eos % (Auto) 0.0, Baso % (Auto) 0.3, Absolute Neuts (auto) 3.1, Absolute Lymphs (auto) 0.52 L, Nucleated RBC % 0, Sodium 138, Potassium 4.2, Chloride 108 H, Carbon Dioxide 19.0 L, Anion Gap 11, BUN 15, Creatinine 0.98, Estim Creat Clear Calc 104.60, Est GFR (MDRD) Af Amer 101, Est GFR (MDRD) Non-Af 84, BUN/Creatinine Ratio 15.2, Glucose 159 H, Calcium 8.2 L, Total Bilirubin 0.40, AST 28, ALT 38, Alkaline Phosphatase 96, Total Protein 6.5, Albumin 3.4, Globulin 3.1, Albumin/Globulin Ratio 1.1 10/13/24 05:33: POC Glucose 169 H 10/13/24 12:37: POC Glucose 162 H Microbiology: Microbiology 10/13/24 05:38 Urine, Clean Catch Legionella Antigen - Final 10/13/24 05:38 Urine, Clean Catch Streptococcus pneumoniae Antigen (M - Final 10/12/24 19:05 Mucosa - Nose SARS-CoV-2, Influenza & RSV (PCR) - Final Influenzae A Radiography Diagnostic Testing: Radiology Impression Chest X-Ray 10/12/24 18:45 IMPRESSION: Mild left basilar atelectasis versus infiltrate. Reading Location: [id number] D/C Instructions Discharge Diet: Low fat / Low cholesterol Discharge Activity: Return to Normal Activity Weight Bearing Status: Weight bearing as tolerated Call your doctor if you observe: Fever of 101 or Higher, Shortness of breath, Dizziness, Swelling in the ankles and Chest pain DC O2, CPAP, BIPAP Needs RN Home O2 Qualification: Home O2 Qualification: Is the patient on home oxygen No 10/13/24 10:52 Home O2 Qualification: AT REST 1- Pulse Ox at rest 95 10/13/24 10:52 Home O2 Qualification: WITH AMBULATION 1- Pulse Ox with ambulation 95 10/13/24 10:52 1- Oxygen Flow Rate with 0 10/13/24 10:52 ambulation Home O2 Discharge instructions: No DC home with Oxygen: No Meaningful Use Info Meaningful Use Meaningful Use Diagnoses (Choose all that apply): None applicable Ischemic Stroke Statin Dosing Therapy Reference: STATIN DOSE THERAPY REFERENCE: * Patients > 75 years receive moderate or high dose statin therapy. * Patients 75 years or YOUNGER should receive HIGH intensity statin dose unless contraindicated. You will be required to document reason for non-treatment if statin daily dose does not meet guidelines. HIGH DOSE STATIN THERAPY DAILY Atorvastatin > than or = to 40 mg Rosuvastatin > than or = to 20 mg Amlodipine + Atorvastatin > than or = to 2.5/40 mg Ezetimibe + Simvastatin 10/80 mg Simvastatin 80mg Discharge Plan Admission Admit Date/Time: 10/12/24 21:00 Primary Reason for Your Visit: hypoxia, influenza Attending Provider: Jenny Lockett Primary Care Provider: Ben Cruz Consulting Providers: Lisa West Instructions Patient Instructions: ED Influenza (Adult) Discharge Orders/Prescriptions Prescriptions: New oseltamivir 75 mg Capsule 75 mg PO BID Qty: 8 0RF prednisone 20 mg tablet 40 mg PO DAILY Qty: 10 0RF Continued losartan 50 mg tablet 50 mg PO DAILY rosuvastatin 10 mg tablet 10 mg PO DAILY Jardiance 25 mg tablet 25 mg PO DAILY Mounjaro 2.5 mg/0.5 mL pen injector 2.5 mg subcut FISCHER@1000 Referrals / Follow Up: Ben Cruz DO [Primary Care Provider] - Within 1 Week Disposition Disposition (needs filled in before D/C Order can be placed): Home, Self Care Charges/Coding Visit Charges Inpatient E&M: 07705 Disch Hosp >30min
--- NOTE | 2024-10-13 15:05 | PHA.DC.MR.R ---
Pharmacy MA Med Reconciliation Pharmacy Service has performed discharge medication reconciliation for this patient. 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 Medications reviewed. The patient's discharge medication list was reviewed for discrepancies and discrepancies were resolved. Medications at Discharge Home Medications empagliflozin 25 mg tablet (Jardiance) 25 mg PO DAILY diabetes 10/12/24 losartan 50 mg tablet 50 mg PO DAILY htn 10/12/24 rosuvastatin 10 mg tablet 10 mg PO DAILY hld 10/12/24 tirzepatide 2.5 mg/0.5 mL subcutaneous pen injector (Mounjaro) 2.5 mg subcut QWEEK dm 10/12/24 oseltamivir 75 mg capsule 75 mg PO BID #8 caps 10/13/24 prednisone 20 mg tablet 40 mg (2 x 20 mg) PO DAILY #10 tabs 10/13/24
== END 2024-10-13 14:20 | disposition home or self-care (01) | DRG 195 ==
LOC: ED 20:44 → MS3 21:46
PROVIDERS: Admitting Provider Family Medicine; Emergency Provider Emergency Medicine; PCP Student in an Organized Health Care Education/Training Program; Visit Provider Student in an Organized Health Care Education/Training Program
DX: J10.1 Influenza due to other identified influenza virus with other respiratory manifestations (principal); E11.9 Type 2 diabetes mellitus without complications; I10 Essential (primary) hypertension; E66.9 Obesity, unspecified; Z68.34 Body mass index [BMI] 34.0-34.9, adult; Z79.899 Other long term (current) drug therapy
CPT/HCPCS: 36415; 71046; 80053; 82962; 83605; 84145; 85025; 87449; 87631; 93005; 94640; 99285; A4216